=== PATIENT | female | born 1940 | race Hispanic/Latino ===

== ENCOUNTER 2018-06-26 11:13 | Outpatient (CLI) | payer MEDICARE, BC | END 2018-06-26 11:14 | disposition home or self-care (01) | LOC: C.RADIC 11:13 | DX: J44.9 Chronic obstructive pulmonary disease, unspecified (principal) ==

== ENCOUNTER 2018-08-08 09:24 | Outpatient (CLI) | payer MEDICARE, BC | END 2018-08-08 09:25 | disposition home or self-care (01) | LOC: C.CARD 09:24 ==